=== PATIENT | male | born 1985 | race Hispanic/Latino ===

== ENCOUNTER 2016-10-24 19:41 | Inpatient (IN) | payer BC, OTHER ==
[2016-10-24] MEDS ORDERED: Sodium Chloride 0.9% 1,000 ML IV STA ×3 (21:05→23:54)
--- NOTE | 2016-10-24 21:24 | ED PDOC ---
HPI: General Adult Time Seen by Provider: 10/24/16 20:27 Chief Complaint (Nursing): Male Genitourinary History Per: Patient Additional Complaint(s): Pt. states since yesterday he's felt soreness to his upper body and today he's noticed that his urine was brown in color. He's also felt tired. Pt. states he an intense workout on Thursday without any injury. Pt. is concerned he may have rhabdomyolysis. Denies dysuria, flank pain, fever, chest pain, SOB. Past Medical History Reviewed: Historical Data, Nursing Documentation, Vital Signs Vital Signs: Last Vital Signs Temp 98.3 F 10/25/16 02:11 Pulse 80 10/25/16 02:11 Resp 18 10/25/16 02:11 BP 155/83 H 10/25/16 02:11 Pulse Ox 99 10/25/16 02:09 - Family History Family History: States: No Known Family Hx - Home Medications Home Medications: Ambulatory Orders Medication Instructions Recorded No Known Home Med 10/25/16 - Allergies Allergies/Adverse Reactions: Allergies Allergy/AdvReac Type Severity Reaction Status Date / Time Penicillins Allergy Intermediate RASH Verified 10/24/16 20:13 shellfish derived Allergy Intermediate SWELLING Verified 10/24/16 20:14 Review of Systems ROS Statement: Except As Marked, All Systems Reviewed And Found Negative Genitourinary Male: Positive for: Hematuria Physical Exam - Reviewed Nursing Documentation Reviewed: Yes Vital Signs Reviewed: Yes - Physical Exam Appears: Positive for: Well, Non-toxic, No Acute Distress Head Exam: Positive for: ATRAUMATIC, NORMAL INSPECTION, NORMOCEPHALIC Skin: Positive for: Normal Color, Warm. Negative for: Rash Eye Exam: Positive for: EOMI, Normal appearance, PERRL ENT: Positive for: Normal ENT Inspection Neck: Positive for: Normal, Painless ROM Cardiovascular/Chest: Positive for: Regular Rate, Rhythm Respiratory: Positive for: CNT, Normal Breath Sounds Gastrointestinal/Abdominal: Positive for: Normal Exam, Soft. Negative for: Tenderness Back: Positive for: Normal Inspection Extremity: Positive for: Normal ROM Neurologic/Psych: Positive for: Alert, Oriented - Laboratory Results Result Diagrams: 10/24/16 21:20 10/25/16 01:28 - ECG O2 Sat by Pulse Oximetry: 100 - Progress ED Course And Treament: Labs ordered. IV line established. IV NS bolus x 3 given. Case d/w Dr. Noguera, covering for Emery, and arrangements made for 23 hr observation. Disposition - Clinical Impression Clinical Impression: Rhabdomyolysis - Patient ED Disposition Is Patient to be Admitted: Yes - Disposition Disposition Time: 01:00 Condition: STABLE
[2016-10-24 21:31] LABS: BASO % 0.5 % (0.0-2.0); EOS # 0.2 K/uL (0.0-0.7); EOS % 1.7 % (0.0-4.0); HEMATOCRIT 48.2 % (35.0-51.0); LYMPH # 1.9 K/uL (1.0-4.3); LYMPH % 18.4 % (20.0-40.0); MEAN CELL VOLUME 89.6 fl (80.0-94.0); MEAN CORPUSCULAR HEMOGLOBIN 29.9 pg (27.0-31.0); MEAN CORPUSCULAR HGB CONC 33.4 g/dL (33.0-37.0); MEAN PLATELET VOLUME 8.3 fl (7.2-11.7); MONO # 0.8 K/uL (0.0-0.8); MONO % 7.7 % (0.0-10.0); NEUT # 7.2 K/uL (1.8-7.0); NEUT % 71.7 % (50.0-75.0); NRBC % 0.1 % (0.0-0.0); RED CELL DISTRIBUTION WIDTH 12.9 % (11.5-14.5); WHITE BLOOD COUNT 10.1 K/uL (4.8-10.8)
[2016-10-24 21:48] LABS: ALB/GLOB RATIO 1.4 (1.0-2.1); ALKALINE PHOSPHATASE 57 U/L (38-126); ALT/SGPT 468 U/L (21-72); BILIRUBIN,TOTAL 0.7 mg/dl (0.2-1.3); BLOOD UREA NITROGEN 21 mg/dl (9-20); CALCIUM 9.2 mg/dL (8.4-10.2); CARBON DIOXIDE 26 mmol/L (22-30); CHLORIDE 103 mmol/L (98-107); GFR AFRICAN-AMERICAN > 60; GLUCOSE,RANDOM 95 mg/dL (75-110); SODIUM 139 mmol/l (132-148); TOTAL PROTEIN 7.7 G/DL (6.3-8.2)
[2016-10-24 21:51] LABS: POTASSIUM 5.8 MMOL/L (3.6-5.0)
[2016-10-24 22:18] LABS: AST/SGOT 1919 U/L (17-59)
[2016-10-24 23:24] LABS: URINE BILIRUBIN SMALL (NEGATIVE); URINE BLOOD LARGE (NEGATIVE); URINE COLOR DARK YELLOW (YELLOW); URINE GLUCOSE (UA) NEGATIVE (Normal); URINE KETONE TRACE mg/dL (NEGATIVE); URINE LEUKOCYTE ESTERASE NEGATIVE Leu/uL (Negative); URINE PROTEIN >=300 mg/dL (NEGATIVE); URINE UROBILINOGEN 0.2 mg/dL (0.2-1.0)
[2016-10-24 23:25] LABS: GRANULAR CAST 1 /lpf (0-1); RBC URINE 50 /hpf (0-3); URINE BACTERIA OCC (<OCC); WBC URINE 1 /hpf (0-5)
[2016-10-25] MEDS: Sodium Chloride 0.9% 1,000 ML IV SCH (19:29)
--- NOTE | 2016-10-25 19:50 | CP.PCM.HP ---
History of Present Illness - History of Present Illness History of Present Illness: pt is a 30 y/o male here c/o brownish urine x 1-2 days after intensive workout. CK in ER [id number] with elev LFT. Present on Admission - Present on Admission Any Indicators Present on Admission: Yes Review of Systems - Musculoskeletal Musculoskeletal: Muscle Cramps, Myalgias Past Patient History - Past Medical History & Family History Past Medical History?: Yes - Past Social History Smoking Status: Never Smoked - PULMONARY Hx Respiratory Disorders: Yes Hx Asthma: Yes (childhood) Other/Comment: seasonal allergies - NEUROLOGICAL Hx Neurological Disorder: No - HEENT Hx HEENT Problems: No - RENAL Hx Chronic Kidney Disease: No - ENDOCRINE/METABOLIC Hx Endocrine Disorders: No - HEMATOLOGICAL/ONCOLOGICAL Hx Blood Disorders: No - INTEGUMENTARY Hx Dermatological Problems: No - MUSCULOSKELETAL/RHEUMATOLOGICAL Hx Musculoskeletal Disorders: No Hx Falls: No - GASTROINTESTINAL Hx Gastrointestinal Disorders: No - GENITOURINARY/GYNECOLOGICAL Hx Genitourinary Disorders: No - PSYCHIATRIC Hx Psychophysiologic Disorder: No Hx Substance Use: No - SURGICAL HISTORY Hx Surgeries: No - ANESTHESIA Hx Anesthesia: No Hx Anesthesia Reactions: No Hx Malignant Hyperthermia: No Has any member of the family had a problem w/ anesthesia?: No Meds Allergies/Adverse Reactions: Allergies Allergy/AdvReac Type Severity Reaction Status Date / Time Penicillins Allergy Intermediate RASH Verified 10/24/16 20:13 shellfish derived Allergy Intermediate SWELLING Verified 10/24/16 20:14 Physical Exam - Head Exam Head Exam: ATRAUMATIC, NORMAL INSPECTION - Eye Exam Eye Exam: EOMI Pupil Exam: NORMAL ACCOMODATION - ENT Exam ENT Exam: Mucous Membranes Moist - Neck Exam Neck exam: Positive for: Normal Inspection - Respiratory Exam Respiratory Exam: Clear to Auscultation Bilateral, NORMAL BREATHING PATTERN - Cardiovascular Exam Cardiovascular Exam: REGULAR RHYTHM - GI/Abdominal Exam GI & Abdominal Exam: Normal Bowel Sounds - Extremities Exam Additional comments: muscle stiffness and swelling b/l in upper ext Results - Vital Signs Recent Vital Signs: Last Vital Signs Temp 98.4 F 10/25/16 16:50 Pulse 83 10/25/16 16:50 Resp 20 10/25/16 16:50 BP 150/95 H 10/25/16 16:50 Pulse Ox 100 10/25/16 16:50 - Labs Result Diagrams: 10/24/16 21:20 10/25/16 01:28 Assessment & Plan - Assessment and Plan (Free Text) Assessment: Rhabdomyolysis Transaminitis Hyperkalemia Plan: cont IVF K is normal now, monitor repeat labs in am. consider nephro consult.
[2016-10-26] MEDS: Sodium Chloride 0.9% 1,000 ML IV SCH ×6 (02:10→22:46)
[2016-10-26 09:21] LABS: ALB/GLOB RATIO 1.4 (1.0-2.1); ALKALINE PHOSPHATASE 61 U/L (38-126); ALT/SGPT 664 U/L (21-72); BILIRUBIN,TOTAL 0.7 mg/dl (0.2-1.3); BLOOD UREA NITROGEN 12 mg/dl (9-20); CALCIUM 9.3 mg/dL (8.4-10.2); CARBON DIOXIDE 31 mmol/L (22-30); CHLORIDE 104 mmol/L (98-107); GFR AFRICAN-AMERICAN > 60; GLUCOSE,RANDOM 93 mg/dL (75-110); POTASSIUM 4.5 MMOL/L (3.6-5.0); SODIUM 142 mmol/l (132-148)
--- NOTE | 2016-10-26 10:27 | CP.PCM.PN ---
Subjective - Date & Time of Evaluation Date of Evaluation: 10/26/16 Time of Evaluation: 09:00 - Subjective Subjective: pt seen and examined at bedside. no new complaints. myalgias are improving. urine is clear Objective - Vital Signs/Intake and Output Vital Signs (last 24 hours): Temp Pulse Resp BP Pulse Ox 98.4 F 64 20 115/69 99 10/26/16 08:22 10/26/16 08:22 10/26/16 08:22 10/26/16 08:22 10/26/16 08:22 - Medications Medications: Current Medications Sodium Chloride (Sodium Chloride 0.9%) 1,000 mls @ 250 mls/hr IV .Q4H ROSY Stop: 10/26/16 19:13 Last Admin: 10/26/16 10:06 Dose: Not Given - Labs Labs: 10/26/16 06:45 - Constitutional Appears: Well, Non-toxic - Head Exam Head Exam: NORMAL INSPECTION - Eye Exam Eye Exam: EOMI, Normal appearance Pupil Exam: NORMAL ACCOMODATION - ENT Exam ENT Exam: Mucous Membranes Moist - Respiratory Exam Respiratory Exam: Clear to Ausculation Bilateral, NORMAL BREATHING PATTERN - Cardiovascular Exam Cardiovascular Exam: REGULAR RHYTHM, +S1, +S2 - GI/Abdominal Exam GI & Abdominal Exam: Normal Bowel Sounds - Extremities Exam Extremities Exam: Full ROM, Normal Inspection Assessment and Plan - Assessment and Plan (Free Text) Assessment: 30 y/o with rhabdomyolysis Plan: 1. Rhabdomyolysis cont IVF ALT elev AST and CPK pending pt feeling better cont to monitor. k is normal
[2016-10-26 11:34] LABS: AST/SGOT 2053 U/L (17-59)
[2016-10-26 15:08] LABS: RBC URINE 3 /hpf (0-3); URINE BILIRUBIN NEGATIVE (NEGATIVE); URINE BLOOD MODERATE (NEGATIVE); URINE COLOR STRAW (YELLOW); URINE GLUCOSE (UA) NEG (Normal); URINE KETONE NEGATIVE (NEGATIVE); URINE LEUKOCYTE ESTERASE NEG Leu/uL (Negative); URINE PROTEIN NEGATIVE (NEGATIVE); URINE UROBILINOGEN 0.2-1.0 mg/dL (0.2-1.0)
[2016-10-27] MEDS: Sodium Chloride 0.9% 1,000 ML IV SCH ×7 (01:48→23:00)
[2016-10-27 08:29] LABS: ALB/GLOB RATIO 1.4 (1.0-2.1); ALKALINE PHOSPHATASE 56 U/L (38-126); ALT/SGPT 631 U/L (21-72); BILIRUBIN,TOTAL 0.8 mg/dl (0.2-1.3); BLOOD UREA NITROGEN 11 mg/dl (9-20); CALCIUM 9.2 mg/dL (8.4-10.2); CARBON DIOXIDE 29 mmol/L (22-30); CHLORIDE 105 mmol/L (98-107); GFR AFRICAN-AMERICAN > 60; GLUCOSE,RANDOM 82 mg/dL (75-110); POTASSIUM 4.3 MMOL/L (3.6-5.0); SODIUM 140 mmol/l (132-148); TOTAL PROTEIN 6.5 G/DL (6.3-8.2)
[2016-10-27 09:44] LABS: AST/SGOT 1702 U/L (17-59)
--- NOTE | 2016-10-27 15:38 | CP.PCM.PN ---
Subjective - Date & Time of Evaluation Date of Evaluation: 10/27/16 Time of Evaluation: 03:00 - Subjective Subjective: pt is feeling better, myalgia improving, no new complaints. ck approx 60 K Objective - Vital Signs/Intake and Output Vital Signs (last 24 hours): Temp Pulse Resp BP Pulse Ox 97.9 F 73 20 109/66 99 10/27/16 09:00 10/27/16 07:35 10/27/16 07:35 10/27/16 07:35 10/27/16 07:35 - Medications Medications: Current Medications Sodium Chloride (Sodium Chloride 0.9%) 1,000 mls @ 250 mls/hr IV .Q4H ROSY Stop: 10/27/16 22:33 Last Admin: 10/27/16 13:44 Dose: 250 mls/hr - Labs Labs: 10/27/16 06:30 - Constitutional Appears: Well, Non-toxic - Head Exam Head Exam: NORMAL INSPECTION - Eye Exam Eye Exam: EOMI Pupil Exam: NORMAL ACCOMODATION - ENT Exam ENT Exam: Mucous Membranes Moist - Neck Exam Neck Exam: Full ROM - Respiratory Exam Respiratory Exam: Clear to Ausculation Bilateral - Cardiovascular Exam Cardiovascular Exam: REGULAR RHYTHM - GI/Abdominal Exam GI & Abdominal Exam: Normal Bowel Sounds - Extremities Exam Extremities Exam: Full ROM, Normal Inspection - Back Exam Back Exam: NORMAL INSPECTION Assessment and Plan - Assessment and Plan (Free Text) Assessment: 30 y/o male with rhabdomyolysis cont IVF repeat ck and cmp in am d/c planning for thursday
[2016-10-28] MEDS: Sodium Chloride 0.9% 1,000 ML IV SCH ×4 (04:09→21:06)
[2016-10-28 08:10] LABS: BASO % 0.4 % (0.0-2.0); EOS # 0.2 K/uL (0.0-0.7); EOS % 3.1 % (0.0-4.0); HEMATOCRIT 42.8 % (35.0-51.0); LYMPH # 1.5 K/uL (1.0-4.3); LYMPH % 22.7 % (20.0-40.0); MEAN CELL VOLUME 89.7 fl (80.0-94.0); MEAN CORPUSCULAR HEMOGLOBIN 30.1 pg (27.0-31.0); MEAN CORPUSCULAR HGB CONC 33.5 g/dL (33.0-37.0); MEAN PLATELET VOLUME 8.6 fl (7.2-11.7); MONO # 0.5 K/uL (0.0-0.8); NEUT # 4.5 K/uL (1.8-7.0); NEUT % 66.8 % (50.0-75.0); NRBC % 0.1 % (0.0-0.0); RED CELL DISTRIBUTION WIDTH 12.9 % (11.5-14.5); WHITE BLOOD COUNT 6.7 K/uL (4.8-10.8)
[2016-10-28 08:25] LABS: ALB/GLOB RATIO 1.3 (1.0-2.1); ALKALINE PHOSPHATASE 56 U/L (38-126); ALT/SGPT 579 U/L (21-72); BILIRUBIN,TOTAL 0.6 mg/dl (0.2-1.3); BLOOD UREA NITROGEN 11 mg/dl (9-20); CARBON DIOXIDE 28 mmol/L (22-30); CHLORIDE 105 mmol/L (98-107); GFR AFRICAN-AMERICAN > 60; GLUCOSE,RANDOM 83 mg/dL (75-110); POTASSIUM 4.1 MMOL/L (3.6-5.0); SODIUM 143 mmol/l (132-148); TOTAL PROTEIN 6.7 G/DL (6.3-8.2)
[2016-10-28 08:32] LABS: AST/SGOT 1381 U/L (17-59)
--- NOTE | 2016-10-28 10:19 | CP.PCM.PN ---
Subjective - Date & Time of Evaluation Date of Evaluation: 10/28/16 Time of Evaluation: 09:00 - Subjective Subjective: pt seen and examined at bedside. NAD. pt feeling better but still c/o myalgia in upper extremity. Objective - Vital Signs/Intake and Output Vital Signs (last 24 hours): Temp Pulse Resp BP Pulse Ox 97.4 F L 71 20 118/65 100 10/28/16 09:00 10/28/16 09:00 10/28/16 09:00 10/28/16 09:00 10/28/16 09:00 - Medications Medications: Current Medications Sodium Chloride (Sodium Chloride 0.9%) 1,000 mls @ 250 mls/hr IV .Q4H ROSY Stop: 10/28/16 18:51 Last Admin: 10/28/16 08:52 Dose: 250 mls/hr Sodium Chloride (Sodium Chloride 0.9%) 1,000 mls @ 250 mls/hr IV .Q4H ROSY Stop: 10/29/16 09:55 - Labs Labs: 10/28/16 07:40 10/28/16 07:40 - Constitutional Appears: Well, Non-toxic - Head Exam Head Exam: ATRAUMATIC, NORMAL INSPECTION - Eye Exam Eye Exam: PERRL Pupil Exam: NORMAL ACCOMODATION - ENT Exam ENT Exam: Mucous Membranes Moist - Neck Exam Neck Exam: Full ROM - Respiratory Exam Respiratory Exam: Clear to Ausculation Bilateral - Cardiovascular Exam Cardiovascular Exam: REGULAR RHYTHM - GI/Abdominal Exam GI & Abdominal Exam: Normal Bowel Sounds - Extremities Exam Extremities Exam: Full ROM, Normal Inspection Assessment and Plan - Assessment and Plan (Free Text) Assessment: 1. [place] [id number] cont IVF Recheck labs at 5pm cont to monitor 2. Transaminitis improving will repeat.
[2016-10-29] MEDS: Sodium Chloride 0.9% 1,000 ML IV SCH ×7 (02:44→22:05)
--- NOTE | 2016-10-29 09:10 | CP.PCM.PN ---
Subjective - Date & Time of Evaluation Date of Evaluation: 10/29/16 Time of Evaluation: 07:00 - Subjective Subjective: pt seen and examined at bedside. nad. pt feeling better. myalgia improving. Objective - Vital Signs/Intake and Output Vital Signs (last 24 hours): Temp Pulse Resp BP Pulse Ox 97.5 F L 66 18 118/69 99 10/29/16 08:57 10/29/16 08:57 10/29/16 08:57 10/29/16 08:57 10/29/16 08:57 - Medications Medications: Current Medications Sodium Chloride (Sodium Chloride 0.9%) 1,000 mls @ 250 mls/hr IV .Q4H ROSY Stop: 11/01/16 12:00 Last Admin: 10/29/16 09:03 Dose: 250 mls/hr - Labs Labs: 10/28/16 07:40 10/28/16 07:40 Assessment and Plan - Assessment and Plan (Free Text) Assessment: 1. rhabdomyolysis CPK improving Cr. stable cont ivf cont to monitor.
[2016-10-29 09:56] LABS: CHLORIDE 106 mmol/L (98-107); POTASSIUM 3.8 MMOL/L (3.6-5.0); SODIUM 142 mmol/l (132-148)
[2016-10-29 09:58] LABS: BILIRUBIN,TOTAL 0.9 mg/dl (0.2-1.3); GFR AFRICAN-AMERICAN > 60
[2016-10-29 09:59] LABS: ALB/GLOB RATIO 1.3 (1.0-2.1); ALKALINE PHOSPHATASE 54 U/L (38-126); ALT/SGPT 500 U/L (21-72); BLOOD UREA NITROGEN 11 mg/dl (9-20); CALCIUM 9.3 mg/dL (8.4-10.2); CARBON DIOXIDE 28 mmol/L (22-30); GLUCOSE,RANDOM 113 mg/dL (75-110); TOTAL PROTEIN 6.9 G/DL (6.3-8.2)
[2016-10-29 10:22] LABS: AST/SGOT 794 U/L (17-59)
[2016-10-30] MEDS: Sodium Chloride 0.9% 1,000 ML IV SCH ×6 (02:19→09:08)
[2016-10-30 07:32] LABS: ALB/GLOB RATIO 1.4 (1.0-2.1); ALKALINE PHOSPHATASE 56 U/L (38-126); ALT/SGPT 398 U/L (21-72); AST/SGOT 516 U/L (17-59); BILIRUBIN,TOTAL 0.6 mg/dl (0.2-1.3); BLOOD UREA NITROGEN 13 mg/dl (9-20); CALCIUM 9.1 mg/dL (8.4-10.2); CARBON DIOXIDE 29 mmol/L (22-30); CHLORIDE 105 mmol/L (98-107); GFR AFRICAN-AMERICAN > 60; GLUCOSE,RANDOM 89 mg/dL (75-110); POTASSIUM 3.8 MMOL/L (3.6-5.0); SODIUM 142 mmol/l (132-148); TOTAL PROTEIN 6.3 G/DL (6.3-8.2)
[2016-10-30 07:46] VITALS: PULSE 66; O2SAT 99
--- NOTE | 2016-10-30 10:44 | CP.PCM.PN ---
Subjective - Date & Time of Evaluation Date of Evaluation: 10/30/16 Time of Evaluation: 10:00 - Subjective Subjective: pt seen and examined at bedside. myalgia's have significantly improved. pt is stable, no new complaints. urine is clear. tolerating po. Objective - Vital Signs/Intake and Output Vital Signs (last 24 hours): Temp Pulse Resp BP Pulse Ox 97.5 F L 66 18 133/74 99 10/30/16 07:45 10/30/16 07:45 10/30/16 07:45 10/30/16 07:45 10/30/16 07:45 - Medications Medications: Current Medications Sodium Chloride (Sodium Chloride 0.9%) 1,000 mls @ 250 mls/hr IV .Q4H ROSY Stop: 11/01/16 12:00 Last Admin: 10/30/16 09:08 Dose: 250 mls/hr - Labs Labs: 10/28/16 07:40 10/30/16 06:30 - Head Exam Head Exam: ATRAUMATIC, NORMAL INSPECTION - Eye Exam Pupil Exam: NORMAL ACCOMODATION, PERRL - ENT Exam ENT Exam: Mucous Membranes Moist - Neck Exam Neck Exam: Full ROM - Respiratory Exam Respiratory Exam: Clear to Ausculation Bilateral - Cardiovascular Exam Cardiovascular Exam: REGULAR RHYTHM - GI/Abdominal Exam GI & Abdominal Exam: Normal Bowel Sounds - Rectal Exam Rectal Exam: NORMAL INSPECTION - Exam Exam: NORMAL INSPECTION - Extremities Exam Extremities Exam: Full ROM, Normal Inspection Assessment and Plan - Assessment and Plan (Free Text) Assessment: 1[place] [id number], cont ivf repeat labs at 3pm d/c planning for this evening.
[2016-10-30 16:27] VITALS: BP 144/76; RESP 20; TEMP 98.3
== END 2016-10-30 17:12 | disposition home or self-care (01) | DRG 558 ==
LOC: H.ER 19:41 → H.ERHOLD 10-25 01:00 → H.MEDSURG1 10-25 02:22 → OBSVTOIN 10-25 19:15 → H.MEDSURG1 10-29 14:27
PROVIDERS: ADMIT Family Medicine; ATTEND Family Medicine
DX: M62.82 Rhabdomyolysis (principal); E87.5 Hyperkalemia; R74.0 Nonspecific elevation of levels of transaminase and lactic acid dehydrogenase [LDH]; Z88.0 Allergy status to penicillin; Z91.013 Allergy to seafood